=== PATIENT | female | born 1975 | race Caucasian/White ===

== ENCOUNTER 2018-05-06 18:24 | Emergency (ER) | payer BC ==
[2018-05-06 19:41] LABS: Basophils # (Auto) 0.1 K/mm3 (0.0-0.1); Basophils % (Auto) 0.7 % (0.0-1.8); Eosinophils # (Auto) 0.3 K/mm3 (0.0-0.4); Eosinophils % (Auto) 2.7 % (0.0-4.3); Hematocrit 41.8 % (30.3-42.9); Hemoglobin 13.8 gm/dl (10.1-14.3); Lymphocytes # (Auto) 3.9 K/mm3 (1.2-5.4); Lymphocytes % (Auto) 40.2 % (13.4-35.0); Mean Corpuscular HGB Conc 33 % (30-34); Mean Corpuscular Hemoglobin 29 pg (28-32); Mean Corpuscular Volume 87 fl (79-97); Monocytes # (Auto) 0.4 K/mm3 (0.0-0.8); Monocytes % (Auto) 4.4 % (0.0-7.3); Platelet Count 238 K/mm3 (140-440); Red Blood Count 4.79 M/mm3 (3.65-5.03); Red Cell Distribution Width 14.2 % (13.2-15.2)
--- NOTE | 2018-05-06 19:41 | Cat Scan Report ---
FINAL REPORT PROCEDURE: CT head without contrast. TECHNIQUE: Computerized tomography of the head was performed without contrast material. HISTORY: Headache. COMPARISON: No prior studies are available for comparison. FINDINGS: The ventricles are normal in size. The perez matter and white matter appear normal. There are no mass lesions. There is no intracranial hemorrhage. The calvarium appears intact. The mastoid air cells and paranasal sinuses are clear as far as visualized. IMPRESSION: Normal study.
[2018-05-06 19:51] LABS: INR 0.89 (0.87-1.13)
[2018-05-06 19:52] LABS: Partial Thromboplastin Time 27.9 Sec. (24.2-36.6)
[2018-05-06 20:08] LABS: Alanine Aminotransferase 85 units/L (7-56); Albumin 4.5 g/dL (3.9-5); BUN/Creatinine Ratio 20; Blood Urea Nitrogen 10 mg/dL (7-17); Calcium 9.8 mg/dL (8.4-10.2); Hemolysis Index 15
[2018-05-06 23:16] VITALS: BP 134/74
--- NOTE | 2018-05-07 00:10 | ED Elopement Review ---
ED Pt Elopement review - Results review Lab results: The patient eloped prior to completion of her medical evaluation. She was noted by staff to be walking out of the emergency department. She did not respond to requests to return. The patient's daughter is currently in the ER picking up the patient's belongings. I informed the daughter that the patient required a complete evaluation, that the patient risks , disability, paralysis, permanent loss of quality of life without a complete evaluation. The patient's daughter verbalized understanding and indicated she would tell the patient all of these things and encouraged the patient to return. Vital Signs 05/06/18 05/06/18 05/06/18 18:46 20:20 21:00 Temperature 98.6 F 98.2 F Pulse Rate 64 74 Respiratory 16 18 Rate Blood Pressure 142/79 137/75 Blood Pressure 155/80 [Left] O2 Sat by Pulse 100 98 100 Oximetry 05/06/18 05/06/18 22:00 23:00 Temperature Pulse Rate Respiratory Rate Blood Pressure 137/79 134/74 Blood Pressure [Left] O2 Sat by Pulse 99 100 Oximetry Lab Results 05/06/18 05/06/18 05/06/18 Range/Units 19:26 19:26 19:26 WBC 9.8 (4.5-11.0) K/mm3 RBC 4.79 (3.65-5.03) M/mm3 Hgb 13.8 (10.1-14.3) gm/dl Hct 41.8 (30.3-42.9) % MCV 87 (79-97) fl MCH 29 (28-32) pg MCHC 33 (30-34) % RDW 14.2 (13.2-15.2) % Plt Count 238 (140-440) K/mm3 Lymph % (Auto) 40.2 H (13.4-35.0) % [place] % (Auto) 4.4 (0.0-7.3) % Eos % (Auto) 2.7 (0.0-4.3) % Baso % (Auto) 0.7 (0.0-1.8) % Lymph # 3.9 (1.2-5.4) K/mm3 [place] # 0.4 (0.0-0.8) K/mm3 Eos # 0.3 (0.0-0.4) K/mm3 Baso # 0.1 (0.0-0.1) K/mm3 Seg Neutrophils % 52.0 (40.0-70.0) % Seg Neutrophils # 5.1 (1.8-7.7) K/mm3 PT 12.5 (12.2-14.9) Sec. INR 0.89 (0.87-1.13) APTT 27.9 (24.2-36.6) Sec. Sodium 141 (137-145) mmol/L Potassium 3.8 (3.6-5.0) mmol/L Chloride 99.9 (98-107) mmol/L Carbon Dioxide 28 (22-30) mmol/L Anion Gap 17 mmol/L BUN 10 (7-17) mg/dL Creatinine 0.5 L (0.7-1.2) mg/dL Estimated GFR > 60 ml/min BUN/Creatinine Ratio 20 % Glucose 124 H (65-100) mg/dL Calcium 9.8 (8.4-10.2) mg/dL Total Bilirubin 0.30 (0.1-1.2) mg/dL AST 75 H (5-40) units/L ALT 85 H (7-56) units/L Alkaline Phosphatase 120 (35-129) units/L Total Protein 7.3 (6.3-8.2) g/dL Albumin 4.5 (3.9-5) g/dL Albumin/Globulin Ratio 1.6 % Laboratory Tests 05/06/18 05/06/18 05/06/18 19:26 19:26 19:26 WBC 9.8 RBC 4.79 Hgb 13.8 Hct 41.8 MCV 87 MCH 29 MCHC 33 RDW 14.2 Plt Count 238 Lymph % (Auto) 40.2 H [place] % (Auto) 4.4 Eos % (Auto) 2.7 Baso % (Auto) 0.7 Lymph # 3.9 [place] # 0.4 Eos # 0.3 Baso # 0.1 Seg Neutrophils % 52.0 Seg Neutrophils # 5.1 PT 12.5 INR 0.89 APTT 27.9 Sodium 141 Potassium 3.8 Chloride 99.9 Carbon Dioxide 28 Anion Gap 17 BUN 10 Creatinine 0.5 L Estimated GFR > 60 BUN/Creatinine Ratio 20 Glucose 124 H Calcium 9.8 Total Bilirubin 0.30 AST 75 H ALT 85 H Alkaline Phosphatase 120 Total Protein 7.3 Albumin 4.5 Albumin/Globulin Ratio 1.6 - Call Back decision Pt Call Back Decision: Call pt to return to ED [facility]
== END 2018-05-07 00:03 | disposition left against medical advice (07) ==
LOC: ED 18:24
DX: G43.909 Migraine, unspecified, not intractable, without status migrainosus (principal); Z53.21 Procedure and treatment not carried out due to patient leaving prior to being seen by health care provider
CPT/HCPCS: 36415; 70450; 80053; 85025; 85610; 85730

== ENCOUNTER 2018-05-07 06:43 | Observation (INO) | payer BC ==
--- NOTE | 2018-05-07 07:15 | Cat Scan Report ---
FINAL REPORT EXAM: CT HEAD/BRAIN WO CON HISTORY: AMS TECHNIQUE: CT imaging acquired through the head without intravenous contrast. Transaxial reformations are provided. PRIORS: 05/06/2018 FINDINGS: The ventricles, cisterns and sulci are normal. No intraparenchymal or extra-axial mass, hemorrhage, or mass effect. [place] and white-matter differentiation is normal. Normal spherical shape of the globes. Paranasal sinuses and mastoid air cells are clear. No skull or facial fracture visualized. IMPRESSION: No acute intracranial abnormality. Findings conveyed to Dr. Parsons at 0607 central Time on 05/07/2018 immediately following the examination.
[2018-05-07 07:31] LABS: Basophils % (Auto) 0.5 % (0.0-1.8); Eosinophils # (Auto) 0.3 K/mm3 (0.0-0.4); Hematocrit 40.7 % (30.3-42.9); Hemoglobin 13.5 gm/dl (10.1-14.3); Lymphocytes # (Auto) 3.3 K/mm3 (1.2-5.4); Lymphocytes % (Auto) 33.4 % (13.4-35.0); Mean Corpuscular HGB Conc 33 % (30-34); Mean Corpuscular Hemoglobin 29 pg (28-32); Mean Corpuscular Volume 87 fl (79-97); Monocytes # (Auto) 0.4 K/mm3 (0.0-0.8); Monocytes % (Auto) 4.5 % (0.0-7.3); Platelet Count 230 K/mm3 (140-440); Red Blood Count 4.68 M/mm3 (3.65-5.03); Red Cell Distribution Width 14.3 % (13.2-15.2)
--- NOTE | 2018-05-07 07:32 | Emergency Department Report ---
ED Neuro Deficit HPI - General Chief Complaint: Neuro Symptoms/Deficit Stated Complaint: LEFT SIDE FACIAL NUMBNESS Time Seen by Provider: 05/07/18 07:31 Source: patient Mode of arrival: Ambulatory Limitations: Language Barrier - History of Present Illness Initial Comments: Patient was here yesterday for a similar problem. She left prior to discharge and returned this morning to the ED. Patient was last seen normal yesterday. -: Gradual Location: right face Presenting Symptoms: Present: Facial Droop/Numbness History of same: No Place: home Severity: moderate Quality: numb Improves With: none Worsens With: none Context: gradual onset Associated Symptoms: denies other symptoms Treatments Prior to Arrival: none - Related Data Home Medications: Home Medications Medication Instructions Recorded Confirmed Last Taken Ibuprofen/Pseudoephedrine HCl 3 each PO DAILY 05/06/18 05/06/18 05/06/18 [Advil Cold & Sinus Caplet] Allergies/Adverse Reactions: Allergies Allergy/AdvReac Type Severity Reaction Status Date / Time No Known Allergies Allergy Verified 05/07/18 07:08 ED Review of Systems ROS: Stated complaint: LEFT SIDE FACIAL NUMBNESS Other details as noted in HPI Comment: All other systems reviewed and negative Constitutional: denies: chills, fever Eyes: denies: eye pain, eye discharge ENT: denies: ear pain, throat pain Respiratory: denies: cough, shortness of breath Cardiovascular: denies: chest pain, palpitations, dyspnea on exertion Endocrine: no symptoms reported Gastrointestinal: denies: abdominal pain, nausea, vomiting, diarrhea Genitourinary: denies: urgency, dysuria Musculoskeletal: denies: back pain, joint swelling Skin: denies: rash, lesions Neurological: numbness, paresthesias. denies: headache, weakness Psychiatric: denies: anxiety, depression Hematological/Lymphatic: denies: easy bleeding, easy bruising ED Past Medical Hx - Past Medical History Hx Headaches / Migraines: Yes - Surgical History Hx Cholecystectomy: Yes Additional Surgical History: C section X 3 - Social History Smoking Status: Never Smoker Substance Use Type: None - Medications Home Medications: Home Medications Medication Instructions Recorded Confirmed Last Taken Type Ibuprofen/Pseudoephedrine HCl 3 each PO DAILY 05/06/18 05/06/18 05/06/18 History [Advil Cold & Sinus Caplet] ED Neuro Physical Exam - General Limitations: Language Barrier General appearance: alert, in no apparent distress Suspected Stroke: Yes - Head Head exam: Present: atraumatic, normocephalic, other (Right Facial droop.) - Eye Eye exam: Present: normal appearance, PERRL, EOMI Pupils: Present: normal accommodation - ENT ENT exam: Present: normal exam, normal orophraynx, mucous membranes moist - Neck Neck exam: Present: normal inspection, full ROM. Absent: tenderness - Respiratory Respiratory exam: Present: normal lung sounds bilaterally. Absent: respiratory distress, wheezes, rales, rhonchi - Cardiovascular Cardiovascular Exam: Present: regular rate, normal rhythm, normal heart sounds - GI/Abdominal GI/Abdominal exam: Present: soft, normal bowel sounds. Absent: distended, tenderness, guarding, rebound - Extremities Exam Extremities exam: Present: normal inspection, full ROM, normal capillary refill - Back Exam Back exam: Present: normal inspection, full ROM - Neurological Exam Neurological exam: Present: alert, oriented X3, CN II-XII intact - NIHSS Assessment Interval: Baseline 1a. Level of Consciousness: alert 1b. LOC Questions: answers correctly 1c. LOC Commands: performs tasks correctly 2. Best Gaze: normal 3. Visual: no visual loss 4. Facial Palsy: complete paralysis 5b. Motor Arm Right: no drift 5a. Motor Arm Left: no drift 6a. Motor Leg Left: no drift 6b. Motor Leg Right: no drift 7. Limb Ataxia: absent 8. Sensory: mild/moderate sensory loss 9. Best Language: no aphasia 10. Dysarthria: normal 11. Extinction/Inattention: no abnormality Total Score: 4 Stroke Severity: Minor Stroke - Psychiatric Psychiatric exam: Present: normal affect, normal mood - Skin Skin exam: Present: warm, dry, intact, normal color ED Course Vital Signs 05/07/18 05/07/18 07:08 07:59 Temperature 98.5 F 98 F Pulse Rate 75 70 Respiratory 14 16 Rate Blood Pressure 135/79 Blood Pressure 153/79 [Left] O2 Sat by Pulse 98 100 Oximetry - Reevaluation(s) Reevaluation #1: 05/07/18 10:55 I consulted the Neurologist editor continuity and script Dr Lamin Peters. He wants patient admitted and stroke work up continued in the hospital. Patient care was discussed with the hospitalist editor continuity and script Dr Giraldo. He wants patient to be admitted to Dr Craig Mendez for further evaluation and management. - Lab Data Result diagrams: 05/07/18 07:21 05/07/18 07:21 Lab Results 05/07/18 05/07/18 05/07/18 Range/Units 07:21 07:21 07:21 WBC 9.8 (4.5-11.0) K/mm3 RBC 4.68 (3.65-5.03) M/mm3 Hgb 13.5 (10.1-14.3) gm/dl Hct 40.7 (30.3-42.9) % MCV 87 (79-97) fl MCH 29 (28-32) pg MCHC 33 (30-34) % RDW 14.3 (13.2-15.2) % Plt Count 230 (140-440) K/mm3 Lymph % (Auto) 33.4 (13.4-35.0) % [place] % (Auto) 4.5 (0.0-7.3) % Eos % (Auto) 3.0 (0.0-4.3) % Baso % (Auto) 0.5 (0.0-1.8) % Lymph # 3.3 (1.2-5.4) K/mm3 [place] # 0.4 (0.0-0.8) K/mm3 Eos # 0.3 (0.0-0.4) K/mm3 Baso # 0.0 (0.0-0.1) K/mm3 Seg Neutrophils % 58.6 (40.0-70.0) % Seg Neutrophils # 5.7 (1.8-7.7) K/mm3 PT 12.3 (12.2-14.9) Sec. INR 0.87 (0.87-1.13) APTT 27.6 (24.2-36.6) Sec. Thrombin Time (15.1-19.6) Sec. Sodium 140 (137-145) mmol/L Potassium 3.9 (3.6-5.0) mmol/L Chloride 99.8 (98-107) mmol/L Carbon Dioxide 28 (22-30) mmol/L Anion Gap 16 mmol/L BUN 9 (7-17) mg/dL Creatinine 0.5 L (0.7-1.2) mg/dL Estimated GFR > 60 ml/min BUN/Creatinine Ratio 18 % Glucose 110 H (65-100) mg/dL Calcium 8.8 (8.4-10.2) mg/dL Troponin T < 0.010 (0.00-0.029) ng/mL 05/07/18 Range/Units 07:21 WBC (4.5-11.0) K/mm3 RBC (3.65-5.03) M/mm3 Hgb (10.1-14.3) gm/dl Hct (30.3-42.9) % MCV (79-97) fl MCH (28-32) pg MCHC (30-34) % RDW (13.2-15.2) % Plt Count (140-440) K/mm3 Lymph % (Auto) (13.4-35.0) % [place] % (Auto) (0.0-7.3) % Eos % (Auto) (0.0-4.3) % Baso % (Auto) (0.0-1.8) % Lymph # (1.2-5.4) K/mm3 [place] # (0.0-0.8) K/mm3 Eos # (0.0-0.4) K/mm3 Baso # (0.0-0.1) K/mm3 Seg Neutrophils % (40.0-70.0) % Seg Neutrophils # (1.8-7.7) K/mm3 PT (12.2-14.9) Sec. INR (0.87-1.13) APTT (24.2-36.6) Sec. Thrombin Time 15.5 (15.1-19.6) Sec. Sodium (137-145) mmol/L Potassium (3.6-5.0) mmol/L Chloride (98-107) mmol/L Carbon Dioxide (22-30) mmol/L Anion Gap mmol/L BUN (7-17) mg/dL Creatinine (0.7-1.2) mg/dL Estimated GFR ml/min BUN/Creatinine Ratio % Glucose (65-100) mg/dL Calcium (8.4-10.2) mg/dL Troponin T (0.00-0.029) ng/mL - EKG Data -: EKG Interpreted by Ks EKG shows normal: sinus rhythm Rate: normal (81) When compared to previous EKG there are: previous EKG unavailable Interpretation: nonspecific ST-T wave wendi, other (No STEMI) - Radiology Data Radiology results: report reviewed, image reviewed - Medical Decision Making [place] Palsy Right leg numbness Critical Care Time: Yes Critical care time in (mins) excluding proc time.: 45 Critical care attestation.: If time is entered above; I have spent that time in minutes in the direct care of this critically ill patient, excluding procedure time. ED Disposition Clinical Impression: Sanz's palsy, Right leg numbness Disposition: DC-09 OP ADMIT IP TO THIS HOSP Is pt being admited?: Yes Does the pt Need Aspirin: Yes Condition: Stable Referrals: PRIMARY CARE, [Primary Care Provider] - 3-5 Days Time of Disposition: 10:54
[2018-05-07] MEDS ORDERED: ARTIFICIAL TEARS OPHTH OINT OD PRN (07:38)
[2018-05-07 07:43] LABS: INR 0.87 (0.87-1.13)
[2018-05-07 07:44] LABS: Partial Thromboplastin Time 27.6 Sec. (24.2-36.6)
[2018-05-07 07:51] LABS: BUN/Creatinine Ratio 18; Blood Urea Nitrogen 9 mg/dL (7-17); Calcium 8.8 mg/dL (8.4-10.2); Hemolysis Index 7
[2018-05-07] MEDS ORDERED: ASPIRIN PO ONE (08:56)
[2018-05-07] MEDS ORDERED: DELTASONE PO ONE (10:54)
[2018-05-07] MEDS ORDERED: PHENERGAN PR PRN (13:30)
[2018-05-07] MEDS ORDERED: DULCOLAX PR PRN (13:30)
[2018-05-07] MEDS ORDERED: REGLAN PO PRN (13:30)
[2018-05-07] MEDS ORDERED: ZOFRAN IV PRN (13:30)
[2018-05-07] MEDS ORDERED: SODIUM CHLORIDE FLUSH SYRINGE 10 ML IV PRN (13:30)
[2018-05-07] MEDS ORDERED: MILK OF MAGNESIA PO PRN (13:30)
--- NOTE | 2018-05-07 13:30 | History and Physical Report ---
History of Present Illness Date of examination: 05/07/18 Date of admission: 05/07/18 10:44 Chief complaint: right facial droop and numbness History of present illness: 43-year-old [place]-speaking female presents with chief complaint of right facial droop and right face/upper extremity numbness. Patient also complains of her tongue feeling numb. Patient's daughter translated the interview. Patient denies any motor deficits. Patient was previously seen in the ER but eloped before being seen by the ER physician yesterday. Patient's symptoms started approximately 2 days ago. Patient denies any nausea vomiting or diarrhea. No chest pain or shortness of breath. No abnormality to her gait. No visual disturbances. Past History Past Medical History: other (migraine headache) Past Surgical History: cholecystectomy, Social history: no significant social history Family history: no significant family history Medications and Allergies Allergies Allergy/AdvReac Type Severity Reaction Status Date / Time No Known Allergies Allergy Verified 05/07/18 07:08 Home Medications Medication Instructions Recorded Confirmed Last Taken Type No Known Home Medications [No 05/07/18 05/07/18 Unknown History Reported Home Medications] Active Meds: Active Medications Multi-Ingred Cream/Lotion/Oil/Oint (Artificial Tears Ophth Oint) 1 applic OD PRN PRN PRN Reason: Dry Eye(s) Review of Systems All systems: negative Exam - Constitutional Vitals: Temp Pulse Resp BP Pulse Ox 98.5 F 77 16 135/76 98 05/07/18 10:30 05/07/18 10:30 05/07/18 10:30 05/07/18 10:30 05/07/18 10:30 General appearance: Present: no acute distress, well-nourished - EENT Eyes: Present: PERRL ENT: hearing intact, clear oral mucosa - Neck Neck: Present: supple, normal ROM - Respiratory Respiratory effort: normal Respiratory: bilateral: CTA - Cardiovascular Heart Sounds: Present: S1 & S2. Absent: rub, click - Extremities Extremities: pulses symmetrical, No edema Peripheral Pulses: within normal limits - Abdominal General gastrointestinal: Present: soft, non-tender, non-distended, normal bowel sounds Female genitourinary: Present: normal - Integumentary Integumentary: Present: clear, warm, dry - Musculoskeletal Musculoskeletal: gait normal, strength equal bilaterally - Psychiatric Psychiatric: appropriate mood/affect, intact judgment & insight - Neurologic Neurologic: CNII-XII intact, moves all extremities Results - Labs CBC & Chem 7: 05/07/18 07:21 05/07/18 07:21 Labs: Laboratory Last Values WBC 9.8 K/mm3 (4.5-11.0) 05/07/18 07:21 RBC 4.68 M/mm3 (3.65-5.03) 05/07/18 07:21 Hgb 13.5 gm/dl (10.1-14.3) 05/07/18 07:21 Hct 40.7 % (30.3-42.9) 05/07/18 07:21 MCV 87 fl (79-97) 05/07/18 07:21 MCH 29 pg (28-32) 05/07/18 07:21 MCHC 33 % (30-34) 05/07/18 07:21 RDW 14.3 % (13.2-15.2) 05/07/18 07:21 Plt Count 230 K/mm3 (140-440) 05/07/18 07:21 Lymph % (Auto) 33.4 % (13.4-35.0) 05/07/18 07:21 [place] % (Auto) 4.5 % (0.0-7.3) 05/07/18 07:21 Eos % (Auto) 3.0 % (0.0-4.3) 05/07/18 07:21 Baso % (Auto) 0.5 % (0.0-1.8) 05/07/18 07:21 Lymph # 3.3 K/mm3 (1.2-5.4) 05/07/18 07:21 [place] # 0.4 K/mm3 (0.0-0.8) 05/07/18 07:21 Eos # 0.3 K/mm3 (0.0-0.4) 05/07/18 07:21 Baso # 0.0 K/mm3 (0.0-0.1) 05/07/18 07:21 Seg Neutrophils % 58.6 % (40.0-70.0) 05/07/18 07:21 Seg Neutrophils # 5.7 K/mm3 (1.8-7.7) 05/07/18 07:21 PT 12.3 Sec. (12.2-14.9) 05/07/18 07:21 INR 0.87 (0.87-1.13) 05/07/18 07:21 APTT 27.6 Sec. (24.2-36.6) 05/07/18 07:21 Thrombin Time 15.5 Sec. (15.1-19.6) 05/07/18 07:21 Sodium 140 mmol/L (137-145) 05/07/18 07:21 Potassium 3.9 mmol/L (3.6-5.0) 05/07/18 07:21 Chloride 99.8 mmol/L (98-107) 05/07/18 07:21 Carbon Dioxide 28 mmol/L (22-30) 05/07/18 07:21 Anion Gap 16 mmol/L 05/07/18 07:21 BUN 9 mg/dL (7-17) 05/07/18 07:21 Creatinine 0.5 mg/dL (0.7-1.2) L 05/07/18 07:21 Estimated GFR > 60 ml/min 05/07/18 07:21 BUN/Creatinine Ratio 18 % 05/07/18 07:21 Glucose 110 mg/dL (65-100) H 05/07/18 07:21 Calcium 8.8 mg/dL (8.4-10.2) 05/07/18 07:21 Troponin T < 0.010 ng/mL (0.00-0.029) 05/07/18 07:21 Assessment and Plan Assessment and plan: Acute CVA. This likely represents Sanz's palsy. However, given her symptoms of extremity numbness, the patient will be placed on the CVA protocol. We will follow-up MRI/MRA, echocardiogram and carotid ultrasound. Neurology consultation. The ER physician consulted neurologist director oncology Dr. Lamin Peters who opted for the patient to be admitted for CVA workup. The patient is outside of the window for TPA.
--- NOTE | 2018-05-07 14:18 | Magnetic Resonance Report ---
MRI BRAIN WITH/WITHOUT CONTRAST: History: Stroke. Right facial droop. Comparison: CT head dated 05/07/18 Technique: Multiple T1 and T2 weighted images were obtained in multiple planes. Axial diffusion and gradient imaging was performed. Post contrast T1 images in two planes were obtained following IV gadolinium. Findings: The brain parenchyma signal intensity and its perez-white interface are normal on all sequences. No abnormal parenchymal signal. No diffusion restriction, hemorrhage, mass effect or extra-axial fluid collection. Ventricular size is normal and symmetric. The basal cisterns are clear. The brainstem and cerebellar hemispheres are within normal limits. The fourth ventricle is midline. The paranasal sinuses and mastoid air cells are well aerated. Normal flow voids are identified in the appropriate vessels at the [place] of [place]. No abnormal enhancement is identified following IV gadolinium. Impression: 1. Unremarkable MRI brain with and without contrast.
--- NOTE | 2018-05-07 14:19 | Magnetic Resonance Report ---
MRA HEAD WITHOUT CONTRAST HISTORY: Stroke. [id number] imaging with MIP reformations of the [place] is submitted. The arteries appear widely patent and free of hemodynamically significant stenosis, aneurysm or dissection. origin of the right WOUND/OSTOMY CLINICAL NURSE SPECIALIST is noted. A moderate to large left posterior communicating artery is identified. IMPRESSION: Normal variant MRA head.
[2018-05-07] MEDS: TYLENOL PO PRN ×2 (18:12→23:52)
[2018-05-08 07:27] LABS: Chol/HDL Ratio 4.56 %
--- NOTE | 2018-05-08 08:34 | History and Physical Report ---
History of Present Illness Date of examination: 05/08/18 Date of admission: 05/07/18 10:44 History of present illness: NEUROLOGY CONSULT NOTE CC: 43 Mohawk speaking F with R face weakness x now 3 days, with pain behind right ear radiating down to right shoulder for several hours. HPI: This examiner speaks Mohawk. Three days ago onset pain behind R ear radiated to right shoulder, not down arm. No numbess in shoulder or arm. No weakness in arm or shoulder. Pt also then noted weakness in right face and odd feeling in right side of tongue. While walking she felt, for one second, her right thigh buckle slightly and only partially, for one step. No leg weakness or numbess. This did not occur again. She has a [place] Palsy and because the fine details of the pain, shoulder, and proximal thigh misstep got "lost in translation", she was admitted for futher clarification (fournier). Head Ct, MRI w and wo contrast, MRA all normal (images reviewed). C-Ultrasound - no hemodynam sig stenosis R or L Carotids, antegrade flow in both vertebrals. Echo pending. ROS: aside from the above an 11 point ROS is negative SH/FH REVIEWED BUT NOT COPIED HERE MEDS/ALLERGIES - SEE CHART EXAM: HEENT - NL SAVE FOR RIGHT PERIPHERAL SEVENTH NERVE PALSY. SHE CANNOT CORREGATE HER RIGHT FOREHEAD, ON CLOSING HER RIGHT EYE IN A RELAXED WAY, SHE CANNOT FULLY COVER THE RIGHT SCLERA, IF SHE SQUEEZES HER EYES CLOSED SHE CAN COVER THE RIGHT SCLERA, NOT BLINKING WITH RIGHT EYE, RIGHT CORNER OF MOUTH IS IMMOBILE. LEFT SIDE OF FACE NORMAL. TONGUE PROTRUDES MIDLINE, UVULA ELEVATES MIDLINE NECK - SUPPLE, NO BRUITS COR - NO M, RUBS LUNGS - CLEAR TO A ABD - SOFT, NO ORGANOMEGALLY, BS NL EXTREM - NO TRAUMA, NO EDEMA NEURO EXAM: MS - ORIENTED X 3, FLUENT SPEECH IN [place] WITHOUT ERROR AND CLEAR WITHOUT SLURRING, FOLLOWS COMMANDS QUICKLY AND ACCURATELY, RENDERS COHERENT HX CN 2-12: NL SAVE FOR RIGHT LOWER MOTOR NEURON DEFICIT DESCRIBED ABOVE. EOM FULL WITHOUT NYSTAGMUS, VISUAL [place] FULL TO FINGER CONFRONTATON, PUPILS BOTH 4 MM AND REACT TO BRIGHT LIGHT STIM, TONGUE AND UVULA MIDLINE MOTION MOT - NL STRENGTH ALL FOUR EXTREM PROX AND DISTALLY SEN - NL THROUGHOUT INCLUDING OVER FACE BILATERALLY TO TOUCH CEREB - FNF NL BILAT GAIT - NL DXIMP: 1. 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 RECC: 1. Prednisone 60 mg po daily x 7 days must start N[facility]LE this AM 2. Artificial tears in right eye q 4 hrs during daytime TO PROTECT EYE 3. Lacrilube (an opthalmic vaseline-like ointment) to right eye q hs TO PROTECT EYE HS 4. Discussed with patient in detail. She will need out patient follow up with a neurologist in one month. 5. OK to DC now. Call as needed. Yoandy Mi MD Past History Past Medical History: other (migraine headache) Past Surgical History: cholecystectomy, Social history: no significant social history Family history: no significant family history Medications and Allergies Allergies Allergy/AdvReac Type Severity Reaction Status Date / Time No Known Allergies Allergy Verified 05/07/18 07:08 Home Medications Medication Instructions Recorded Confirmed Last Taken Type No Known Home Medications [No 05/07/18 05/07/18 Unknown History Reported Home Medications] Active Meds: Active Medications Acetaminophen (Tylenol) 650 mg PO Q4H PRN PRN Reason: Pain, Mild (1-3) Last Admin: 05/07/18 23:52 Dose: 650 mg Bisacodyl (Dulcolax) 10 mg OK QDAY PRN PRN Reason: Constipation Enoxaparin Sodium (Lovenox) 40 mg SUB-Q QDAY RODRI Magnesium Hydroxide (Milk Of Magnesia) 30 ml PO Q4H PRN PRN Reason: Constipation Metoclopramide HCl (Reglan) 10 mg PO Q6H PRN PRN Reason: Nausea And Vomiting Multi-Ingred Cream/Lotion/Oil/Oint (Artificial Tears Ophth Oint) 1 applic OD PRN PRN PRN Reason: Dry Eye(s) Ondansetron HCl (Zofran) 4 mg IV Q8H PRN PRN Reason: N/V unrelieved by Reglan Promethazine HCl (Phenergan) 25 mg OK Q6H PRN PRN Reason: Nausea And Vomiting Sodium Chloride (Sodium Chloride Flush Syringe 10 Ml) 10 ml IV PRN PRN PRN Reason: LINE FLUSH Physical Examination - Vital Signs Vital Signs: Vital Signs Temp Pulse Resp BP Pulse Ox 98.5 F 75 14 135/79 98 05/07/18 07:08 05/07/18 07:08 05/07/18 07:08 05/07/18 07:08 05/07/18 07:08 Results - Laboratory Findings CBC and BMP: 05/07/18 07:21 05/07/18 07:21 Abnormal Lab Findings: Abnormal Labs 05/07/18 05/08/18 07:21 05:28 Creatinine 0.5 L Glucose 110 H Cholesterol 242 H LDL Cholesterol Direct 190 H
[2018-05-08] MEDS ORDERED: LOVENOX SUB-Q SCH (10:00)
--- NOTE | 2018-05-08 10:13 | Discharge Summary ---
Providers - Providers Date of Admission: 05/07/18 10:44 Date of discharge: 05/08/18 Attending physician: ROSSI KIMBALL 05/07/18 Consult to Physician [CONS] Routine Comment: Consulting Provider: ANGÉLICA OBREGON Physician Instructions: Reason For Exam: cva, loco's palsy 05/07/18 13:30 Consult to Case Management [CONS] Routine Services Needed at Discharge: Other Notified:: CM notified Consult to Dietitian/Nutrition [CONS] Routine Physician Instructions: Reason For Exam: Reason for Consult: Nutrition Recommendations Reason for Consult: Diet education Occupational Therapy Evaluate and Treat [CONS] Routine Comment: Reason For Exam: Neuro deficits Physical Therapy Evaluation and Treat [CONS] Routine Comment: Reason For Exam: Neuro deficits Primary care physician: SALON MANAGER Hospitalization Reason for admission: bells palsy Condition: Stable Hospital course: 43-year-old [place]ish-speaking female presents with chief complaint of right facial droop and right face. Three days ago onset pain behind R ear radiated to right shoulder, not down arm. No numbess in shoulder or arm. No weakness in arm or shoulder. Pt also then noted weakness in right face and odd feeling in right side of tongue. While walking she felt, for one second, her right thigh buckle slightly and only partially, for one step. No leg weakness or numbess. This did not occur again. The patient was admitted and ruled out for CVA. The patient has a diagnosis of right peripheral seventh nerve palsy. Head Ct, MRI w and wo contrast, MRA all normal. C-Ultrasound - no hemodynam sig stenosis R or L Carotids, antegrade flow in both vertebrals. The patient will be discharged home with a prednisone taper. Dedicated discharge time 32 minutes. Disposition: DC-01 TO HOME OR SELFCARE Time spent for discharge: 32 - Discharge Diagnoses (1) Loco's palsy Status: Acute Core Measure Documentation - Palliative Care Palliative Care/ Comfort Measures: Not Applicable - Core Measures Any of the following diagnoses?: none Exam - Constitutional Vitals: Temp Pulse Resp BP Pulse Ox 98.6 F 72 17 130/75 100 05/07/18 15:26 05/07/18 15:26 05/08/18 00:52 05/07/18 15:26 05/07/18 15:26 General appearance: Present: no acute distress, well-nourished - EENT Eyes: Present: PERRL, irregular pupil (bells palsy) ENT: hearing intact, clear oral mucosa - Neck Neck: Present: supple, normal ROM - Respiratory Respiratory effort: normal Respiratory: bilateral: CTA - Cardiovascular Heart Sounds: Present: S1 & S2. Absent: rub, click - Extremities Extremities: pulses symmetrical, No edema Peripheral Pulses: within normal limits - Abdominal General gastrointestinal: Present: soft, non-tender, non-distended, normal bowel sounds Female genitourinary: Present: normal - Integumentary Integumentary: Present: clear, warm, dry - Musculoskeletal Musculoskeletal: gait normal, strength equal bilaterally - Psychiatric Psychiatric: appropriate mood/affect, intact judgment & insight - Neurologic Neurologic: CNII-XII intact, moves all extremities Plan Activity: advance as tolerated Weight Bearing Status: Weight Bear as Tolerated Diet: regular Additional Instructions: 1. Prednisone 60 mg po daily x 7 days must start NICOLE this AM. 2. Artificial tears in right eye q 4 hrs during daytime TO PROTECT EYE. 3. Lacrilube (an opthalmic vaseline-like ointment) to right eye q hs TO PROTECT EYE HS. 4. Discussed with patient in detail. She will need out patient follow up with a neurologist in one month Follow up with: PRIMARY CARE, [Primary Care Provider] - 3-5 Days Prescriptions: Prednisone 60 mg PO DAILY #7 tablet
[2018-05-08] MEDS: TYLENOL PO PRN (11:07)
[2018-05-08] MEDS ORDERED: DELTASONE PO ONE (11:10)
[2018-05-08 13:13] VITALS: BP 123/71
--- NOTE | 2018-05-12 08:59 | Vascular Lab Report ---
CAROTID DUPLEX STUDY: RIGHT PSVEDV CCA [id number] CCA DIST:[id number] ICA PROX:6420 ICA MID:6324 ICA DIST:8333 ECA: 947 VERT: 58 14 LEFT PSVEDV CCA [id number] CCA DIST:8624 ICA PROX:9039 ICA MID:9731 ICA DIST:7938 ECA: 879 VERT: 57 12 REASON FOR EXAM: Stroke. COMMENTS ON THE RIGHT: Doppler frequency analysis is consistent with 16 to 49 percent diameter reduction of the internal carotid artery. A small amount of plaque is seen. The common carotid artery is patent. The external carotid artery is patent. The vertebral artery has antegrade flow. COMMENTS ON THE LEFT: Doppler frequency analysis is consistent with 16 to 49 percent diameter reduction of the internal carotid artery. A small amount of plaque is seen. The common carotid artery is patent. The external carotid artery is patent. The vertebral artery has antegrade flow. IMPRESSION: Less than 50% diameter reduction in the internal carotid arteries bilaterally.
== END 2018-05-08 13:30 | disposition home or self-care (01) ==
LOC: ED 06:43 → 4A 10:44 → INTOOBSV 10:44 → 4A 13:22 → 3A 14:18
PROVIDERS: ADMIT Hospitalist; ATTEND Hospitalist
DX: G51.0 Bell's palsy (principal); I63.9 Cerebral infarction, unspecified; G43.909 Migraine, unspecified, not intractable, without status migrainosus
CPT/HCPCS: 36415; 70450; 70544; 70553; 80048; 80061; 84484; 85025; 85610; 85670; 85730; 93005; 93010; 93306; 93880; 96372; 99291; A9577; G0378; J1650; J7512